=== PATIENT | female | born 1980 | race African-American/Black ===

== ENCOUNTER 2019-03-22 15:42 | Emergency (ER) | payer BC, MEDICAID, OTHER ==
[2019-03-22 16:02] VITALS: BP 145/82
--- NOTE | 2019-03-22 16:40 | ER Document Report ---
ED Medical Screen (RME) - General Chief Complaint: Abdominal Pain Stated Complaint: LEGS SWOLLEN/KNOT BELOW BELLY BUTTON/SPOTTING Time Seen by Provider: 03/22/19 16:29 Primary Care Provider: HELADIO BEATTY MD [Primary Care Provider] - Follow up as needed Mode of Arrival: Ambulatory Information source: Patient Notes: 38-year-old female presented to ED for 2+ pedal edema bilaterally. She states it started yesterday but it went down last night. She states she got up at work 4 hours today and the swelling returned and both legs are very tight and cramping. 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 She states her only medical history is a torn ACL she has had a knee reconstruction wisdom teeth removal and a bilateral tubal ligation. Will order blood urine and chest x-ray for the pedal edema and she will be seen again by another provider. I have greeted and performed a rapid initial assessment of this patient. A comprehensive ED assessment and evaluation of the patient, analysis of test results and completion of medical decision making process will be conducted by an additional ED providers. TRAVEL OUTSIDE OF THE [place] IN LAST 30 DAYS: No - Related Data Allergies/Adverse Reactions: No Known Allergies Allergy (Verified 03/22/19 15:45) Physical Exam - Vital signs Vitals: Temp Pulse Resp BP Pulse Ox 98.4 F 88 16 145/82 H 97 03/22/19 16:01 03/22/19 16:01 03/22/19 16:01 03/22/19 16:01 03/22/19 16:01 Course - Vital Signs Vital signs: Temp Pulse Resp BP Pulse Ox 98.4 F 88 16 145/82 H 97 03/22/19 16:01 03/22/19 16:01 03/22/19 16:01 03/22/19 16:01 03/22/19 16:01 Doctor's Discharge - Discharge Referrals: HELADIO BEATTY MD [Primary Care Provider] - Follow up as needed
[2019-03-22 17:14] LABS: ABSOLUTE EOSINOPHILS # (AUTO) 0.1 10^3/uL (0.0-0.6); ABSOLUTE LYMPHOCYTES (AUTO) 2.1 10^3/uL (0.5-4.7); ABSOLUTE MONOCYTES (AUTO) 0.6 10^3/uL (0.1-1.4); ABSOLUTE NEUT (AUTO) 2.6 10^3/uL (1.7-8.2); BASOPHILS % (AUTO) 0.7 % (0-2); EOSINOPHILS % (AUTO) 2.3 % (0-6); HEMATOCRIT 37.3 % (36.0-47.0); HEMOGLOBIN 12.5 g/dL (12.0-15.5); MEAN CORPUSCULAR HGB CONC 33.6 g/dL (32.0-36.0); MEAN CORPUSCULAR VOLUME 95 fl (80-97); MONOCYTES % (AUTO) 10.6 % (3-13); PLATELET COUNT 190 10^3/uL (150-450); RED BLOOD COUNT 3.92 10^6/uL (3.72-5.28); RED CELL DISTRIBUTION WIDTH 12.7 % (11.5-14.0); SEGMENTED NEUTROPHILS % (AUTO) 47.4 % (42-78); TOTAL CELLS COUNTED % (AUTO) 100 %; WHITE BLOOD COUNT 5.4 10^3/uL (4.0-10.5)
[2019-03-22 17:25] LABS: APPEARANCE,URINE CLOUDY; BILIRUBIN,URINE NEGATIVE (NEGATIVE); COLOR,URINE YELLOW; GLUCOSE, URINE NEGATIVE (NEGATIVE); KETONES,URINE NEGATIVE (NEGATIVE); LEUKOCYTE ESTERASE,URINE LARGE (NEGATIVE); NITRITE,URINE NEGATIVE (NEGATIVE); PROTEIN,URINE NEGATIVE (NEGATIVE); URINE SPECIFIC GRAVITY 1.024
[2019-03-22 17:30] LABS: ALANINE AMINOTRANSFERASE 29 U/L (9-52); ALBUMIN 4.3 g/dL (3.5-5.0); ALKALINE PHOSPHATASE 65 U/L (38-126); ANION GAP 8 (5-19); ASPARTATE AMINO TRANSFERASE 21 U/L (14-36); BILIRUBIN,DIRECT 0.2 mg/dL (0.0-0.4); BILIRUBIN,TOTAL 0.4 mg/dL (0.2-1.3); BLOOD UREA NITROGEN 9 mg/dL (7-20); CALCIUM 9.5 mg/dL (8.4-10.2); CARBON DIOXIDE 28 mmol/L (22-30); CHLORIDE 106 mmol/L (98-107); GLUCOSE 85 mg/dL (75-110); SODIUM 142.4 mmol/L (137-145); TOTAL PROTEIN 7.6 g/dL (6.3-8.2)
--- NOTE | 2019-03-22 17:33 | RADIOLOGY REPORT (SQ) ---
EXAM DESCRIPTION: CHEST 2 VIEWS COMPLETED DATE/TIME: 03/22/2019 5:03 pm REASON FOR STUDY: pedal edema COMPARISON: None. EXAM PARAMETERS: NUMBER OF VIEWS: two views TECHNIQUE: Digital Frontal and Lateral radiographic views of the chest acquired. RADIATION DOSE: NA LIMITATIONS: none FINDINGS: LUNGS AND PLEURA: No opacities, masses or pneumothorax. No pleural effusion. MEDIASTINUM AND HILAR STRUCTURES: No masses or contour abnormalities. HEART AND VASCULAR STRUCTURES: Heart normal size. No evidence for failure. BONES: No acute findings. HARDWARE: None in the chest. OTHER: No other significant finding. IMPRESSION: NO ACUTE RADIOGRAPHIC FINDING IN THE CHEST. TECHNICAL DOCUMENTATION: JOB ID: [id number] [id number] 2010 [employer]- All Rights Reserved Reading location - IP/workstation name: [email or web address]
[2019-03-22] MEDS ORDERED: LIDOCAINE 1%/EPINEPHRINE INJ 20 ML VIAL INJ ONE (19:02)
--- NOTE | 2019-03-22 19:04 | ER Document Report ---
ED General - General Chief Complaint: Abdominal Pain Stated Complaint: LEGS SWOLLEN/KNOT BELOW BELLY BUTTON/SPOTTING Time Seen by Provider: 03/22/19 16:29 Primary Care Provider: HELADIO BEATTY MD [ACTIVE STAFF] - Follow up in 3-5 days MARQUIS PAUL MD [ACTIVE STAFF] - Follow up as needed (surgery if needed ) Mode of Arrival: Ambulatory Notes: Patient is a 38-year-old female that presents to the emergency department for chief complaint of leg swelling and a "knot in her lower abdomen". Patient states she is noticed over the past few days that her legs have been a little more swollen than usual will, and wanted to have this evaluated, she has not had any associated pain with it, or redness. Denies any fevers, chills or chest pain. She denies any shortness of breath. She also mentions as a secondary complaint that she felt a "knot" in her lower abdomen, just under her pannus, she felt it in the shower wanted to have this evaluated as well. It was slightly tender to palpate, but was not causing her too much pain when she is not pushing on it. She currently rates her pain as a 1 out of 10 describes it as an aching sensation. Past Medical History: Denies chronic medical conditions Past Surgical History: Tubal ligation, ACL repair Social History: Admits to smoking cigarettes, denies alcohol or drug use. Family History: Reviewed and noncontributory for presenting illness Allergies: Reviewed, see documented allergy list. REVIEW OF SYSTEMS: Other than noted above, the 12 point review of systems was reviewed with the patient and were negative, all pertinent findings are included in the HPI. PHYSICAL EXAMINATION: Vital signs reviewed, nursing noted reviewed. GENERAL: Well-appearing, well-nourished and in no acute distress. HEAD: Atraumatic, normocephalic. EYES: Eyes appear normal, extraocular movements intact, sclera anicteric, conjunctiva are normal. ENT: nares patent, oropharynx clear without exudates. Moist mucous membranes. NECK: Normal range of motion, supple without lymphadenopathy LUNGS: Breath sounds clear to auscultation bilaterally and equal. No wheezes rales or rhonchi. HEART: Regular rate and rhythm without murmurs ABDOMEN: Soft, nontender, normoactive bowel sounds. No rebound, guarding, or rigidity. No masses appreciated. There is a somewhat fluctuant but more firm nodule in the lower abdomen just left of midline, the measures approximately 3 cm x 2 cm. Mildly tender to palpate. EXTREMITIES: Nontender, good range of motion, trace lower extremity edema bilaterally, no tenderness with palpation of the cast, no varices noted. NEUROLOGICAL: No focal neurological deficits. Moves all extremities spontaneously Motor and sensory grossly intact on exam. PSYCH: Normal mood, normal affect. SKIN: Warm, Dry, normal turgor, no rashes or lesions noted on exposed skin TRAVEL OUTSIDE OF THE [place] IN LAST 30 DAYS: No - Related Data Allergies/Adverse Reactions: No Known Allergies Allergy (Verified 03/22/19 15:45) Past Medical History - General Information source: Patient - Social History Smoking Status: Current Some Day Smoker Family History: Reviewed & Not Pertinent Patient has suicidal ideation: No Patient has homicidal ideation: No Renal/ Medical History: Denies: Hx Peritoneal Dialysis Physical Exam - Vital signs Vitals: Temp Pulse Resp BP Pulse Ox 98.4 F 88 16 145/82 H 97 03/22/19 16:01 03/22/19 16:01 03/22/19 16:01 03/22/19 16:01 03/22/19 16:01 Course - Re-evaluation Re-evalutation: Patient seen and examined vital signs reviewed. Laboratory data and/or imaging were ordered as appropriate for the patient's presenting symptoms and complaint, with consideration of any critical or life threatening conditions that may be associated with their obtained history and exam as noted above. Patient was treated with I&D for what appeared to be an abscess, on the lower abdomen, however after anesthetizing incising this area, it actually appeared to be more like a lipoma based on the tissue presentation, under ultrasound prior to incision, it looks like us if it could be a superficial skin abscess, therefore that is why I&D was performed, since I did not appreciate any abscess or drainage, the wound was then closed as noted with 2 simple interrupted sutures with 3-0 chromic. Patient tolerated all well. Results were reviewed when available and demonstrated UA concerning for possible urinary tract infection, blood work otherwise unremarkable and chest x-ray negat janusz. The patient was re-evaluated and was improved and stable Evaluation was most consistent with nonspecific peripheral edema, suggested wearing compression stockings, low suspicion for DVT do not think duplex imaging is needed at this time, as she does not have any significant redness, or unilat eral edema, and the swelling is minimal, patient also noted to have what appeared to be urinary tract infection, will treat with Bactrim, and have her follow-up with the primary care she is also given referral to surgery regarding the lipoma of her abdomen. Results were discussed with the patient at this point, after careful consideration I feel that that patient can be discharged from the emergency department, the patient was educated treatments and reasons to return to the emergency department based on their presumed diagnosis as noted above, they were advised to followup with a primary care physician in 2-3 days. Patient was agreeable to plan of care. *Note is created using voice recognition software and may contain spelling, syntax or grammatical errors. Laboratory 03/22/19 03/22/19 03/22/19 16:40 16:40 16:40 WBC 5.4 RBC 3.92 Hgb 12.5 Hct 37.3 MCV 95 MCH 32.0 MCHC 33.6 RDW 12.7 Plt Count 190 Seg Neutrophils % 47.4 Lymphocytes % 39.0 Monocytes % 10.6 Eosinophils % 2.3 Basophils % 0.7 Absolute Neutrophils 2.6 Absolute Lymphocytes 2.1 Absolute Monocytes 0.6 Absolute Eosinophils 0.1 Absolute Basophils 0.0 Sodium 142.4 Potassium 4.0 Chloride 106 Carbon Dioxide 28 Anion Gap 8 BUN 9 Creatinine 0.86 Est GFR ( Amer) > 60 Est GFR (Non-Af Amer) > 60 Glucose 85 Calcium 9.5 Total Bilirubin 0.4 Direct Bilirubin 0.2 Neonat Total Bilirubin Not Reportable Neonat Direct Bilirubin Not Reportable Neonat Indirect Bili Not Reportable AST 21 ALT 29 Alkaline Phosphatase 65 NT-Pro-B Natriuret Pep 39 Total Protein 7.6 Albumin 4.3 Urine Color Urine Appearance Urine pH Ur Specific [place] Urine Protein Urine Glucose (UA) Urine Ketones Urine Blood Urine Nitrite Urine Bilirubin Urine Urobilinogen Ur Leukocyte Esterase Urine WBC (Auto) Urine RBC (Auto) Squamous Epi Cells Auto Urine Mucus (Auto) Urine Ascorbic Acid 03/22/19 16:40 WBC RBC Hgb Hct MCV MCH MCHC RDW Plt Count Seg Neutrophils % Lymphocytes % Monocytes % Eosinophils % Basophils % Absolute Neutrophils Absolute Lymphocytes Absolute Monocytes Absolute Eosinophils Absolute Basophils Sodium Potassium Chloride Carbon Dioxide Anion Gap BUN Creatinine Est GFR ( Amer) Est GFR (Non-Af Amer) Glucose Calcium Total Bilirubin Direct Bilirubin Neonat Total Bilirubin Neonat Direct Bilirubin Neonat Indirect Bili AST ALT Alkaline Phosphatase NT-Pro-B Natriuret Pep Total Protein Albumin Urine Color YELLOW Urine Appearance CLOUDY Urine pH 6.0 Ur Specific [place] 1.024 Urine Protein NEGATIVE Urine Glucose (UA) NEGATIVE Urine Ketones NEGATIVE Urine Blood NEGATIVE Urine Nitrite NEGATIVE Urine Bilirubin NEGATIVE Urine Urobilinogen 2.0 H Ur Leukocyte Esterase LARGE H Urine WBC (Auto) 71 Urine RBC (Auto) 39 Squamous Epi Cells Auto 21 Urine Mucus (Auto) FEW Urine Ascorbic Acid NEGATIVE Chest X-Ray 03/22/19 16:38 IMPRESSION: NO ACUTE RADIOGRAPHIC FINDING IN THE CHEST. - Vital Signs Vital signs: Temp Pulse Resp BP Pulse Ox 98.4 F 74 16 145/82 H 98 03/22/19 16:01 03/22/19 20:48 03/22/19 20:48 03/22/19 16:01 03/22/19 20:48 - Laboratory Result Diagrams: 03/22/19 16:40 03/22/19 16:40 Laboratory results interpreted by me: 03/22/19 16:40 Urine Urobilinogen 2.0 H Ur Leukocyte Esterase LARGE H Procedures - Incision and Drainage Abdomen Type: Simple Anesthetic type: 1% Lidocaine w/epi mL's of anesthetic: 3 Blade size: 11 I&D procedure: Chlorprep applied Incision Method: Incision made by scalpel Amount/type of drainage: 0 - Laceration/Wound Repair Abdomen Wound length (cm): 1.6 Wound's Depth, Shape: Superficial Laceration pre-procedure: Sterile PPE donned, Sterile drapes applied Anesthetic type: 1% Lidocaine w/epi Volume Anesthetic (mLs): 2 Wound explored: Clean Wound Repaired With: Sutures Suture Size/Type: 3:0, Other - Chromic Number of Sutures: 2 Layer Closure?: No Complications: No Discharge - Discharge Clinical Impression: UTI (urinary tract infection) Qualifiers: Urinary tract infection type: site unspecified Hematuria presence: without hematuria Qualified Code(s): N39.0 - Urinary tract infection, site not specified Lipoma Qualifiers: Lipoma location: trunk Qualified Code(s): D17.1 - Benign lipomatous neoplasm of skin and subcutaneous tissue of trunk Condition: Stable Disposition: HOME, SELF-CARE Instructions: Urinary Tract Infection ([facility]) Additional Instructions: Please complete the entire course of antibiotics as prescribed, and please follow-up with the surgeon if you would like to have this lipoma addressed. Prescriptions: Sulfamethoxazole/Trimethoprim [Bactrim Ds Tablet] 1 each PO BID #14 tablet Forms: Return to Work Referrals: HELADIO BEATTY MD [ACTIVE STAFF] - Follow up in 3-5 days MARQUIS PAUL MD [ACTIVE STAFF] - Follow up as needed (surgery if needed )
== END 2019-03-22 20:48 | disposition home or self-care (01) ==
LOC: ER 15:42
PROC: 0H97XZZ Drainage of Abdomen Skin, External Approach (ICD-10-PCS; principal; 2019-03-22)
DX: N39.0 Urinary tract infection, site not specified (principal); D17.1 Benign lipomatous neoplasm of skin and subcutaneous tissue of trunk; R10.9 Unspecified abdominal pain; M79.89 Other specified soft tissue disorders; R10.30 Lower abdominal pain, unspecified; F17.210 Nicotine dependence, cigarettes, uncomplicated
CPT/HCPCS: 99283; 36415; 85025; 80053; 81001; 83880; 71046; 10060; J3490

== ENCOUNTER 2019-05-12 04:32 | Emergency (ER) | payer BC ==
[2019-05-12] MEDS ORDERED: ASPIRIN 81 MG TABLET, CHEWABLE PO ONE (04:51)
[2019-05-12 05:41] LABS: ABSOLUTE EOSINOPHILS # (AUTO) 0.1 10^3/uL (0.0-0.6); ABSOLUTE LYMPHOCYTES (AUTO) 2.2 10^3/uL (0.5-4.7); ABSOLUTE MONOCYTES (AUTO) 0.5 10^3/uL (0.1-1.4); ABSOLUTE NEUT (AUTO) 3.1 10^3/uL (1.7-8.2); BASOPHILS % (AUTO) 0.7 % (0-2); EOSINOPHILS % (AUTO) 2.5 % (0-6); HEMATOCRIT 37.2 % (36.0-47.0); HEMOGLOBIN 12.7 g/dL (12.0-15.5); LYMPHOCYTES % (AUTO) 35.9 % (13-45); MEAN CORPUSCULAR HEMOGLOBIN 32.1 pg (27.0-33.4); MEAN CORPUSCULAR VOLUME 94 fl (80-97); MONOCYTES % (AUTO) 8.8 % (3-13); PLATELET COUNT 226 10^3/uL (150-450); RED BLOOD COUNT 3.95 10^6/uL (3.72-5.28); RED CELL DISTRIBUTION WIDTH 12.7 % (11.5-14.0); SEGMENTED NEUTROPHILS % (AUTO) 52.1 % (42-78); TOTAL CELLS COUNTED % (AUTO) 100 %
[2019-05-12 05:57] LABS: ALANINE AMINOTRANSFERASE 23 U/L (9-52); ALBUMIN 4.1 g/dL (3.5-5.0); ALKALINE PHOSPHATASE 68 U/L (38-126); ANION GAP 9 (5-19); ASPARTATE AMINO TRANSFERASE 19 U/L (14-36); BILIRUBIN,DIRECT 0.2 mg/dL (0.0-0.4); BILIRUBIN,TOTAL 0.5 mg/dL (0.2-1.3); BLOOD UREA NITROGEN 8 mg/dL (7-20); CALCIUM 9.1 mg/dL (8.4-10.2); CARBON DIOXIDE 26 mmol/L (22-30); CHLORIDE 106 mmol/L (98-107); CREATINE KINASE 132 U/L (30-135); GLUCOSE 125 mg/dL (75-110); POTASSIUM 3.7 mmol/L (3.6-5.0); SODIUM 140.7 mmol/L (137-145); TOTAL PROTEIN 7.4 g/dL (6.3-8.2)
[2019-05-12 06:11] LABS: CREATINE KINASE MB < 0.22 ng/mL (<4.55); TROPONIN I < 0.012 ng/mL
--- NOTE | 2019-05-12 06:11 | RADIOLOGY REPORT (SQ) ---
EXAM DESCRIPTION: XR CHEST 1 VIEW COMPLETED DATE/TME: 05/12/2019 04:51 CLINICAL HISTORY: 38 years, Female, chest pain COMPARISON: 03/22/2019 chest NUMBER OF VIEWS: 1 TECHNIQUE: Portable chest LIMITATIONS: None. FINDINGS: Heart size normal. Lungs clear. No pneumothorax IMPRESSION: Negative chest copyright 2010 [employer]- All Rights Reserved
--- NOTE | 2019-05-12 07:16 | ER Document Report ---
ED General - General Chief Complaint: Chest Pain Stated Complaint: CHEST PAIN Time Seen by Provider: 05/12/19 06:46 Primary Care Provider: JEFFREY HERRERA MD [Primary Care Provider] - Follow up as needed TRAVEL OUTSIDE OF THE [place] IN LAST 30 DAYS: No - HPI Patient complains to provider of: Chest pain Notes: Patient coming in for evaluation of chest pain. Patient states left-sided chest pain feels like a pulling sensation occurred around 3:00 earlier this morning. Patient is currently states that chest pain has now resolved. Chest pain increased with deep breathing and movement especially of the left shoulder. Patient denies any recent trauma denies any fever chills nausea vomiting diarrhea. Patient states she did vomit once while waiting patient states that before she did have pizza and barbecue chicken things. Patient otherwise is resting comfortably. Patient states approximately few days ago did have a lipoma removed in the surgical office below the umbilicus. Patient in no obvious distress sleeping upon my evaluation easily arousable. Denies any recent travel. - Related Data Allergies/Adverse Reactions: No Known Allergies Allergy (Verified 05/12/19 04:33) Past Medical History - Social History Smoking Status: Never Smoker Chew tobacco use (# tins/day): No Frequency of alcohol use: None Drug Abuse: None Family History: Reviewed & Not Pertinent Patient has suicidal ideation: No Patient has homicidal ideation: No Renal/ Medical History: Denies: Hx Peritoneal Dialysis Review of Systems - Review of Systems Constitutional: No symptoms reported EENT: No symptoms reported Cardiovascular: Chest pain Respiratory: No symptoms reported Gastrointestinal: No symptoms reported Genitourinary: No symptoms reported Female Genitourinary: No symptoms reported Musculoskeletal: No symptoms reported Skin: No symptoms reported Hematologic/Lymphatic: No symptoms reported Neurological/Psychological: No symptoms reported -: Yes All other systems reviewed and negative Physical Exam - Vital signs Vitals: Temp Pulse Resp BP Pulse Ox 98.3 F 80 22 H 156/91 H 98 05/12/19 04:46 05/12/19 04:46 05/12/19 04:46 05/12/19 04:46 05/12/19 04:46 Interpretation: Normal - General General appearance: Appears well, Alert - HEENT Head: Normocephalic, Atraumatic Eyes: Normal Pupils: PERRL - Respiratory Respiratory status: No respiratory distress Chest status: Tender - Chest pain reproduced with palpation of the chest coracoid process and left sternal border. Breath sounds: Normal Chest palpation: Normal - Cardiovascular Rhythm: Regular Heart sounds: Normal auscultation Murmur: No - Abdominal Inspection: Normal Distension: No distension Bowel sounds: Normal Tenderness: Nontender Organomegaly: No organomegaly - Back Back: Normal, Nontender - Extremities General upper extremity: Normal inspection, Nontender, Normal color, Normal ROM, Normal temperature General lower extremity: Normal inspection, Nontender, Normal color, Normal ROM, Normal temperature, Normal weight bearing. No: Heri's sign - Neurological Neuro grossly intact: Yes Cognition: Normal Orientation: AAOx4 Liv Coma Scale Eye Opening: Spontaneous [place] Coma Scale Verbal: Oriented Liv Coma Scale Motor: Obeys Commands Liv Coma Scale Total: 15 Speech: Normal Motor strength normal: LUE, RUE, LLE, RLE Sensory: Normal - Psychological Associated symptoms: Normal affect, Normal mood - Skin Skin Temperature: Warm Skin Moisture: Dry Skin Color: Normal Course - Re-evaluation Re-evalutation: 05/12/19 07:10 The patient has atypical chest pain as the patient's chest pain is not suggestiv e of pulmonary embolus, cardiac ischemia, aortic dissection, or other serious etiology. Given the extremely low risk of these diagnoses further testing and evaluation for these possibilities does not appear to be indicated at this time. The patient has been instructed to return if the symptoms worsen or change in any way. Examination is consistent with chest wall pain. Will discharge patient home with Motrin Tylenol follow-up with PCP. - Vital Signs Vital signs: Temp Pulse Resp BP Pulse Ox 98.1 F 80 22 H 144/94 H 99 05/12/19 06:22 05/12/19 04:46 05/12/19 06:01 05/12/19 06:01 05/12/19 06:01 - Laboratory Result Diagrams: 05/12/19 05:18 05/12/19 05:18 Laboratory results interpreted by me: 05/12/19 05:18 Glucose 125 H Discharge - Discharge Clinical Impression: Chest wall pain Condition: Good Disposition: HOME, SELF-CARE Instructions: Anti-Inflammatory Medication ([facility]), Chest Wall Pain ([facility]) Additional Instructions: Please follow-up with your primary care physician. Please take Tylenol Motrin as prescribed. Return to ER symptoms worsen Prescriptions: Ibuprofen [Motrin 600 mg Tablet] 600 mg PO Q8HP PRN #21 tablet PRN Reason: Forms: Return to Work Referrals: JEFFREY HERRERA MD [Primary Care Provider] - Follow up as needed
[2019-05-12 07:22] VITALS: BP 144/88
--- NOTE | 2019-05-12 23:18 | EKG REPORT ---
SEVERITY:- NORMAL ECG - SINUS RHYTHM : Confirmed by: Josse Patel 12-May-2019 23:17:54
== END 2019-05-12 07:28 | disposition home or self-care (01) ==
LOC: ER 04:32
DX: R07.89 Other chest pain (principal); R11.10 Vomiting, unspecified; Z98.890 Other specified postprocedural states
CPT/HCPCS: 36415; 71045; 80053; 82550; 82553; 84484; 85025; 93005; 93010; 99285

== ENCOUNTER 2019-06-12 11:51 | Observation (INO) | payer BC ==
[~2019-06-12 11:51] MED LIST: LACTATED RINGERS 1000 ML IV PRN; LIDOCAINE 0.5% INJ-PF (5 MG/ML) 50 ML SDV SUBCUT PRN
[2019-06-12] MEDS ORDERED: SUCCINYLCHOLINE CHLORIDE INJ 200 MG/10 ML VIAL ONE (12:42)
[2019-06-12] MEDS ORDERED: DEXAMETHASONE SOD PHOSPHATE INJ 4 MG/1 ML VIAL ONE (14:14)
[2019-06-12] MEDS ORDERED: ONDANSETRON HCL INJ/PF 4 MG/2 ML SDV ONE (14:14)
[2019-06-12] MEDS ORDERED: FENTANYL CITRATE INJ/PF 100 MCG/2 ML AMPUL ONE ×2 (14:14→15:43)
[2019-06-12] MEDS ORDERED: MIDAZOLAM 2 MG/2 ML INJ ONE (14:14)
[2019-06-12] MEDS ORDERED: PROPOFOL INJ 200 MG/20 ML VIAL IV ONE (14:15)
[2019-06-12] MEDS ORDERED: BUPIVACAINE HCL 0.25 % INJ/PF (2.5 MG/1 ML) 30 ML VIAL ONE (14:46)
[2019-06-12] MEDS ORDERED: CEFAZOLIN INJ 1 GM VIAL ONE (15:02)
[2019-06-12] MEDS ORDERED: MEPERIDINE HCL/PF INJ 25 MG/1 ML DISP.SYRIN IV PRN (15:36)
[2019-06-12] MEDS ORDERED: FENTANYL CITRATE INJ/PF 100 MCG/2 ML AMPUL IV PRN ×3 (15:36)
[2019-06-12] MEDS ORDERED: BUPIVACAINE HCL 0.25 % INJ/PF (2.5 MG/1 ML) 30 ML VIAL INJ ONE (15:36)
[2019-06-12] MEDS ORDERED: ONDANSETRON HCL INJ/PF 4 MG/2 ML SDV IV PRN (15:36)
[2019-06-12] MEDS ORDERED: PROMETHAZINE HCL INJ 25 MG/1 ML VIAL IV PRN ×2 (15:36)
[2019-06-12] MEDS ORDERED: DIPHENHYDRAMINE HCL 50 MG/ML VIAL IV PRN (15:36)
[2019-06-12] MEDS ORDERED: MORPHINE SULFATE 10 MG/ML INJ IV PRN (15:36)
[2019-06-12] MEDS: FENTANYL CITRATE INJ/PF 100 MCG/2 ML AMPUL ONE ×2 (17:20→17:25)
[2019-06-12] MEDS ORDERED: ACETAMINOPHEN 1,000 MG/100 ML RTUPB IV ONE (17:28)
[2019-06-12] MEDS ORDERED: KETOROLAC TROMETHAMINE INJ/PF 30 MG/1 ML SDV ONE (17:28)
[2019-06-12] MEDS ORDERED: HYDROCODONE/ACETAMINOPHEN 10-325 MG TABLET PO PRN (17:31)
[2019-06-12] MEDS ORDERED: RINGERS SOLUTION,LACTATED 1,000 ML IV PRN (17:33)
[2019-06-12] MEDS ORDERED: HYDROMORPHONE HCL INJ/PF 2 MG/ML AMPULE ONE (17:45)
[2019-06-12] MEDS: KETOROLAC TROMETHAMINE INJ/PF 30 MG/1 ML SDV IV SCH (21:25)
[2019-06-12] MEDS: ONDANSETRON HCL INJ/PF 4 MG/2 ML SDV IV PRN (21:25)
[2019-06-12] MEDS: FAMOTIDINE 20 MG TABLET PO SCH (21:25)
[2019-06-13] MEDS: MORPHINE SULFATE 10 MG/ML INJ IV PRN ×2 (04:09→10:58)
[2019-06-13] MEDS: ONDANSETRON HCL INJ/PF 4 MG/2 ML SDV IV PRN (04:09)
[2019-06-13] MEDS: KETOROLAC TROMETHAMINE INJ/PF 30 MG/1 ML SDV IV SCH ×3 (06:57→21:23)
[2019-06-13] MEDS: FAMOTIDINE 20 MG TABLET PO SCH ×2 (09:55→21:23)
[2019-06-13] MEDS: ENOXAPARIN SODIUM INJ 40 MG/0.4 ML DISP.SYRIN SUBCUT SCH (10:02)
--- NOTE | 2019-06-13 16:08 | PDOC PROGRESS REPORT ---
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 The patient required resection of her anterior rectus sheath, with placement of a bridging Bard mesh. The patient continues to complain of significant abdominal pain. She is still requiring intravenous narcotics. She reports severe nausea and flushing with hydrocodone. I will change her oral pain medication to oxycodone. Continue Toradol. Out of bed/ambulate. Anticipate discharge tomorrow, if pain control is more acceptable with Percocet.
[2019-06-13] MEDS: OXYCODONE-ACETAMINOPHEN 5-325 MG TABLET PO PRN (22:45)
[2019-06-14] MEDS: MORPHINE SULFATE 10 MG/ML INJ IV PRN (03:25)
[2019-06-14] MEDS: KETOROLAC TROMETHAMINE INJ/PF 30 MG/1 ML SDV IV SCH (06:01)
--- NOTE | 2019-06-14 10:27 | PDOC DISCHARGE SUMMARY ---
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 The patient underwent the operation and did reasonably well. She had large amounts of abdominal pain after the surgery, and required hospital admission with intravenous narcotics. Hospital Course Hospital Course: The patient was taken to the floor stable condition. Pain medication was started. She received Toradol, morphine, and hydrocodone. She reports that the hydrocodone made her feel flushed and jittery. Her hydrocodone was changed to Percocet, and she tolerated this much better. By 06/14/2019, the patient was ambulating, tolerating a diet, her pain was controlled with anti-inflammatories and Percocet. At this point she had reached maximal hospital benefit, and she was medically fit for discharge. Physical Exam Vital Signs: Temp Pulse Resp BP Pulse Ox 98.5 F 67 16 108/54 L 100 06/14/19 07:21 06/14/19 07:21 06/14/19 07:21 06/14/19 07:21 06/14/19 07:21 Intake & Output 06/13/19 06/14/19 06/15/19 06:59 06:59 06:59 Intake Total 2420 1838 Output Total 9084 4205 Balance 155 -527 Weight 110.6 kg 109.5 kg Qualifiers - * PATIENT BEING DISCHARGED WITH ANY OF THE FOLLOWING DIAGNOSIS: No Acute Heart Failure - Is this a Heart Failure Patient?: No Plan Discharge Plan: Discharge home. Diet as tolerated. Activity: No lifting greater than 10 pounds x 6 weeks. Follow-up with [facility] next week (Jeniffer Sims PA-C to see the patient). Percocet 5/325 mg p.o. every 6 hours as needed for pain. Ibuprofen 800 mg p.o. 3 times daily with meals. Sponge baths until drain is out. Okay to remove dressing today. Record [place] output daily. Time Spent: Less than 30 Minutes
[2019-06-14 10:59] VITALS: BP 114/66
[2019-06-14] MEDS: FAMOTIDINE 20 MG TABLET PO SCH (11:16)
[2019-06-14] MEDS: ENOXAPARIN SODIUM INJ 40 MG/0.4 ML DISP.SYRIN SUBCUT SCH (11:18)
[2019-06-14] MEDS: OXYCODONE-ACETAMINOPHEN 5-325 MG TABLET PO PRN (11:34)
--- NOTE | 2019-06-16 00:48 | Operative Report ---
Nonrecallable Operative Report DATE OF SURGERY: 06/12/19 PREOPERATIVE DIAGNOSIS: Sarcoma of the abdominal soft tissues POSTOPERATIVE DIAGNOSIS: Same as above OPERATION: 1. Excision of 2 cm abdominal soft tissue sarcoma with 5 cm circumferential margin. 2. Resection of anterior rectus sheath fascia to facilitate negative margin. 3. Reconstruction of abdominal wall with prosthetic mesh, 15 cm x 15 cm. 4. Advancement flap closure of abdominal wall skin, >30 cm in length. SURGEON: MARQUIS DAMIAN SOLE STITCHER HAND: JENIFFER SIMS ANESTHESIA: GA TISSUE REMOVED OR ALTERED: 2 cm sarcoma with 5 cm circumferential margin, including the anterior rectus sheath of the lower abdominal wall. COMPLICATIONS: None apparent ESTIMATED BLOOD LOSS: 30 cc PROCEDURE: Drains/implants: 15 Icelandic round Ronni drain and subcutaneous tissues. Procedure in detail: After informed consent was obtained, the patient was brought into the operating room and laid in the supine position. The area of the sarcoma was identified. A 5 cm circumferential margin was then marked. An elliptical incision was then created approximately 30 cm in length, from ASIS to ASIS. The dissection was taken through the subcutaneous tissue down to the anterior abdominal wall. The rectus sheath was then excised immediately posterior to the sarcoma, in an area approximately 12 cm in diameter. The specimen was then marked for pathology and sent for examination. Next, reconstruction of the anterior abdominal wall was undertaken. A 15 x 15 cm piece of Bard mesh was placed onto the abdominal wall. It was tucked beneath the edges of the rectus sheath. It was sutured into place using #1 Prolene suture and running circumferential fashion. After this was completed, an advancement flap was created superiorly and inferiorly along the external oblique aponeurosis. The abdominal skin and soft tissue was elevated and advanced in order to facilitate closure. A 15 Icelandic round Rnoni drain was placed into the wound through a separate stab incision. The subcutaneous tissues were closed using interrupted 2-0 Vicryl sutures. The overlying skin was closed using skin davey. A dressing was placed, and the procedure was concluded. All sponge, instrument, and needle counts were correct x2. Condition: Stable. Jeniffer Sims PA-C was scrubbed and present the entirety of the procedure. She assisted with all portions of the procedure including measuring of the margins, excision of the sarcoma, removal of the fascia, placement of the mesh, selling of the mesh, closure of the soft tissues, closure of the skin.
== END 2019-06-14 12:39 | disposition home or self-care (01) ==
LOC: OROUT 11:51 → 5 17:27 → OROUT 18:43 → 5 06-14 12:39
PROVIDERS: ADMIT Surgery; ATTEND Surgery
DX: C49.4 Malignant neoplasm of connective and soft tissue of abdomen (principal); Z01.818 Encounter for other preprocedural examination; R19.09 Other intra-abdominal and pelvic swelling, mass and lump; F17.200 Nicotine dependence, unspecified, uncomplicated
CPT/HCPCS: 22901; 14000; 81025; 88307 ×2; 00800; G0378 ×3; G0379; C1781; J2250; J0690; J1100; J3010; J1885 ×3; J2270 ×2; J1170; J0330; J2405 ×2; J2704; J0131; 800

== ENCOUNTER 2019-07-14 09:20 | Observation (INO) | payer BC ==
[2019-07-14] MEDS ORDERED: LIDOCAINE 1% INJ-PF (10 MG/ML) 30 ML SDV ONE (10:52)
[2019-07-14] MEDS ORDERED: BUPIVACAINE HCL 0.25 % INJ/PF (2.5 MG/1 ML) 30 ML VIAL ONE (10:52)
[2019-07-14 11:07] LABS: HEMATOCRIT 27.4 % (36.0-47.0); HEMOGLOBIN 9.2 g/dL (12.0-15.5); MEAN CORPUSCULAR HEMOGLOBIN 30.7 pg (27.0-33.4); MEAN CORPUSCULAR HGB CONC 33.7 g/dL (32.0-36.0); MEAN CORPUSCULAR VOLUME 91 fl (80-97); PLATELET COUNT 531 10^3/uL (150-450); RED CELL DISTRIBUTION WIDTH 14.3 % (11.5-14.0); WHITE BLOOD COUNT 9.7 10^3/uL (4.0-10.5)
[2019-07-14 11:28] LABS: ANION GAP 11 (5-19); BLOOD UREA NITROGEN 6 mg/dL (7-20); CALCIUM 9.5 mg/dL (8.4-10.2); CARBON DIOXIDE 28 mmol/L (22-30); CHLORIDE 102 mmol/L (98-107); GLUCOSE 92 mg/dL (75-110); POTASSIUM 4.4 mmol/L (3.6-5.0)
[2019-07-14] MEDS ORDERED: FENTANYL CITRATE INJ/PF 250 MCG/5 ML AMPULE ONE (11:53)
[2019-07-14] MEDS ORDERED: KETOROLAC TROMETHAMINE 60 MG/2 ML SDV ONE (11:53)
[2019-07-14] MEDS ORDERED: PROPOFOL INJ 200 MG/20 ML VIAL IV ONE (11:54)
[2019-07-14] MEDS ORDERED: ONDANSETRON HCL INJ/PF 4 MG/2 ML SDV ONE (11:54)
[2019-07-14] MEDS ORDERED: DEXAMETHASONE SOD PHOSPHATE INJ 4 MG/1 ML VIAL ONE (11:54)
[2019-07-14] MEDS ORDERED: MIDAZOLAM 2 MG/2 ML INJ ONE (11:54)
[2019-07-14] MEDS ORDERED: VANCOMYCIN HCL INJ 500 MG VIAL ONE (12:43)
[2019-07-14] MEDS ORDERED: GENTAMICIN SULFATE INJ 80 MG/2 ML VIAL ONE (12:52)
[2019-07-14] MEDS ORDERED: ONDANSETRON HCL INJ/PF 4 MG/2 ML SDV IV PRN (13:24)
[2019-07-14] MEDS ORDERED: VANCOMYCIN HCL 0 MG in DEXTROSE 5%-WATER 250 ML IV NR (13:30)
[2019-07-14] MEDS ORDERED: FENTANYL CITRATE INJ/PF 100 MCG/2 ML AMPUL ONE (13:36)
--- NOTE | 2019-07-14 13:36 | Operative Report ---
Nonrecallable Operative Report DATE OF SURGERY: 07/14/19 PREOPERATIVE DIAGNOSIS: Infected abdominal wall hematoma POSTOPERATIVE DIAGNOSIS: Same as above OPERATION: 1. Incision and drainage of infected abdominal wall hematoma. 2. Pulse lavage irrigation of hematoma cavity. SURGEON: MARQUIS DAMIAN TALENT PARTNER: JENIFFER SIMS ANESTHESIA: GA TISSUE REMOVED OR ALTERED: Infected abdominal wall hematoma, wound culture COMPLICATIONS: None apparent ESTIMATED BLOOD LOSS: Old hematoma PROCEDURE: Drains/implants: Kerlix, soaked in gentamicin. Procedure in detail: After informed consent was obtained, the patient was brought to the operating room and laid in the supine position. The area of the abdomen was prepped and draped in a normal sterile fashion the previous incision was used. A 15 blade scalpel was used to open the old incision. Dissection was carried through the subcutaneous tissue using sharp dissection. The old hematoma was identified. A portion was taken for wound culture. Next, the old hematoma was evacuated. The hematoma cavity was cleaned vigorously. Next, the pulse lavage irrigation device was used to irrigate the cavity. The mesh was then inspected. The mesh was found to be completely incorporated into the musculature of the abdominal wall. It was posterior to, and not involved with, the hematoma cavity. After this was confirmed, it was felt that the mesh should be salvageable. The mesh was left in situ. Gentamicin solution was used to soak a Kerlix. The Kerlix was then placed into the abdominal wound. A dressing was placed, and the procedure was concluded. All sponge, instrument, and needle counts were correct x2. Condition: Stable. Jeniffer Sims PA-C was scrubbed and present the entirety of the procedure. She assisted with all portions of the procedure including opening of the abdominal incision, evacuation of the infected hematoma, pulse lavage irrigation of the cavity, and placement of the dressing.
[2019-07-14] MEDS ORDERED: VECURONIUM BROMIDE INJ 10 MG VIAL IV ONE (14:24)
[2019-07-14] MEDS ORDERED: NEOSTIGMINE METHYLSULFATE 10 MG/10 ML VIAL ONE (14:24)
[2019-07-14] MEDS ORDERED: GLYCOPYRROLATE 1 MG/5 ML VIAL ONE (14:24)
[2019-07-14] MEDS: OXYCODONE-ACETAMINOPHEN 5-325 MG TABLET PO PRN (16:18)
[2019-07-14] MEDS: MORPHINE SULFATE 10 MG/ML INJ IV PRN (21:14)
[2019-07-14] MEDS: VANCOMYCIN HCL 1,250 MG in DEXTROSE 5%-WATER 250 ML IV SCH (21:22)
[2019-07-15] MEDS: OXYCODONE-ACETAMINOPHEN 5-325 MG TABLET PO PRN ×3 (01:04→13:48)
[2019-07-15] MEDS: MORPHINE SULFATE 10 MG/ML INJ IV PRN ×3 (06:32→21:57)
[2019-07-15] MEDS: DOCUSATE SODIUM 100 MG CAPSULE PO SCH (09:17)
[2019-07-15] MEDS: VANCOMYCIN HCL 1,250 MG in DEXTROSE 5%-WATER 250 ML IV SCH ×2 (09:18→21:57)
--- NOTE | 2019-07-15 10:56 | PDOC PROGRESS REPORT ---
Subjective Progress Note for:: 07/15/19 Reason For Visit: T81.40XA INFECTION FOLLOWING A PROCEDURE, UNSPECI Physical Exam Vital Signs: Temp Pulse Resp BP Pulse Ox 98.7 F 76 17 111/60 95 07/15/19 07:53 07/15/19 07:53 07/15/19 07:53 07/15/19 07:53 07/15/19 07:53 Intake & Output 07/14/19 07/15/19 07/16/19 06:59 06:59 06:59 Intake Total 4450 Output Total 3100 Balance 1350 Weight 109.32 kg 106 kg Results Laboratory Results: 07/14/19 10:50 07/14/19 10:50 07/14/19 07/14/19 10:50 10:50 WBC 9.7 RBC 3.00 L Hgb 9.2 L Hct 27.4 L MCV 91 MCH 30.7 MCHC 33.7 RDW 14.3 H Plt Count 531 H Sodium 140.7 Potassium 4.4 Chloride 102 Carbon Dioxide 28 Anion Gap 11 BUN 6 L Creatinine 0.76 Est GFR ( Amer) > 60 Glucose 92 Calcium 9.5 Assessment & Plan - Diagnosis (1) Infected hematoma following procedure Is this a current diagnosis for this admission?: Yes - Plan Summary Plan Summary: This is a 38-year-old female status post evacuation and irrigation of a large hematoma of the lower abdominal wall. The patient has indwelling hernia mesh, after abdominal wall reconstruction. The hernia mesh did not appear to be involved in the hematoma. Her dressing and packing were changed today. The wound appears clean, without purulence. Plan for wound VAC placement to assist with accelerated healing and granulation. Consultation has been made for home wound VAC. Discharge planning. Continue with dressing changes for now. Damp Kerlix packing twice daily. Awaiting wound culture results. Continue vancomycin for now. Patient still requiring intermittent morphine for pain control.
[2019-07-16] MEDS: OXYCODONE-ACETAMINOPHEN 5-325 MG TABLET PO PRN ×4 (04:31→22:21)
[2019-07-16] MEDS: MORPHINE SULFATE 10 MG/ML INJ IV PRN ×2 (05:48→19:34)
--- NOTE | 2019-07-16 07:36 | PDOC PROGRESS REPORT ---
Subjective Reason For Visit: T81.40XA INFECTION FOLLOWING A PROCEDURE, UNSPECI Physical Exam Vital Signs: Temp Pulse Resp BP Pulse Ox 98.6 F 73 16 132/76 H 97 07/15/19 23:00 07/15/19 23:00 07/15/19 23:00 07/15/19 23:00 07/15/19 23:00 Intake & Output 07/15/19 07/16/19 07/17/19 06:59 06:59 06:59 Intake Total 4450 1894 Output Total 3100 2700 Balance 1350 -806 Weight 106 kg 106.8 kg Results Laboratory Results: 07/14/19 10:50 07/14/19 10:50 Assessment & Plan - Diagnosis (1) Infected hematoma following procedure Is this a current diagnosis for this admission?: Yes - Plan Summary Plan Summary: This is a 38-year-old female status post evacuation and irrigation of a large hematoma of the lower abdominal wall. The patient has indwelling hernia mesh, after abdominal wall reconstruction. The hernia mesh did not appear to be involved in the hematoma. The wound appears clean, without purulence. Plan for wound VAC placement to assist with accelerated healing and granulation. Consultation has been made for home wound VAC. Discharge planning. Continue with dressing changes for now. Damp Kerlix packing twice daily. Cultures show Staph. Change abx to Bactrim. Patient still requiring intermittent morphine for pain control.
[2019-07-16 10:37] LABS: VANCOMYCIN,TROUGH 7.9 ug/mL (5.0-20.0)
[2019-07-16] MEDS: DOCUSATE SODIUM 100 MG CAPSULE PO SCH (11:16)
[2019-07-16] MEDS: SULFAMETHOXAZOLE/TRIMETHOPRIM 800-160 MG TABLET PO SCH ×2 (11:16→22:17)
[2019-07-16] MEDS ORDERED: ONDANSETRON HCL INJ/PF 4 MG/2 ML SDV IV PRN (14:00)
[2019-07-17] MEDS: OXYCODONE-ACETAMINOPHEN 5-325 MG TABLET PO PRN ×3 (02:26→20:31)
[2019-07-17] MEDS: MORPHINE SULFATE 10 MG/ML INJ IV PRN ×3 (05:22→23:33)
[2019-07-17] MEDS: DOCUSATE SODIUM 100 MG CAPSULE PO SCH ×2 (10:51→18:47)
[2019-07-17] MEDS: SULFAMETHOXAZOLE/TRIMETHOPRIM 800-160 MG TABLET PO SCH ×2 (10:52→21:24)
--- NOTE | 2019-07-17 16:22 | PDOC PROGRESS REPORT ---
Subjective Progress Note for:: 07/17/19 Reason For Visit: T81.40XA INFECTION FOLLOWING A PROCEDURE, UNSPECI Physical Exam Vital Signs: Temp Pulse Resp BP Pulse Ox 98.3 F 74 17 105/72 97 07/17/19 11:11 07/17/19 11:11 07/17/19 11:11 07/17/19 11:11 07/17/19 11:11 Intake & Output 07/16/19 07/17/19 07/18/19 06:59 06:59 06:59 Intake Total 1894 1262 Output Total 2700 4100 Balance -806 -2832 Weight 106.8 kg 107 kg Results Laboratory Results: 07/14/19 10:50 07/16/19 09:33 07/14/19 12:38 Abdomen - Abscess Gram Stain - Final 07/14/19 12:38 Abdomen - Abscess Wound Culture - Final Staphylococcus Lugdunensis No Anaerobic Organisms Assessment & Plan - Diagnosis (1) Infected hematoma following procedure Is this a current diagnosis for this admission?: Yes - Plan Summary Plan Summary: This is a 38-year-old female status post evacuation and irrigation of a large hematoma of the lower abdominal wall. The patient has indwelling hernia mesh, after abdominal wall reconstruction. The hernia mesh did not appear to be involved in the hematoma. The wound appears clean, without purulence. Wound VAC placement today to assist with accelerated healing and granulation. Consultation has been made for home health. Discharge planning. Place wound VAC today Cultures show Staph. Cont. Bactrim. Patient still requiring intermittent morphine for pain control. D/c tomorrow.
--- NOTE | 2019-07-17 16:25 | Operative Report ---
Nonrecallable Operative Report DATE OF SURGERY: 07/17/19 PREOPERATIVE DIAGNOSIS: Large lower midline abdominal wound. POSTOPERATIVE DIAGNOSIS: Same as above. OPERATION: Placement of negative pressure wound management system (18 cm x 5 cm x 3 cm). SURGEON: MARQUIS PAUL ANESTHESIA: Other - None TISSUE REMOVED OR ALTERED: None COMPLICATIONS: None ESTIMATED BLOOD LOSS: None PROCEDURE: Drains/implants: Black granular foam wound VAC sponge, cut to size. Procedure in detail: After informed consent was obtained for the patient, she was laid in the supine position in the hospital room. The damp Kerlix packing was removed from the wound. The wound appeared healthy, without obvious purulence. The black granular foam wound VAC sponge was cut to size. The wound measured 18 x 3 x 5 cm. The sponge was placed into the wound. It was covered with the clear occlusive dressing. Suction was applied, and the seal was good. Once this was completed, the procedure was concluded. All sponge, instrument, and needle counts were correct. Condition: Stable.
[2019-07-17] MEDS ORDERED: DIPHENHYDRAMINE HCL 25 MG CAPSULE ONE (23:31)
[2019-07-17] MEDS ORDERED: DIPHENHYDRAMINE HCL 25 MG CAPSULE PO PRN (23:40)
[2019-07-18] MEDS: OXYCODONE-ACETAMINOPHEN 5-325 MG TABLET PO PRN (06:03)
--- NOTE | 2019-07-18 08:56 | PDOC DISCHARGE SUMMARY ---
General - Admit/Disc Date/PCP Admission Date/Primary Care Provider: 07/14/19 09:20 KIRIT RACHEL MD Discharge Date: 07/18/19 - Discharge Diagnosis (1) Infected hematoma following procedure Is this a current diagnosis for this admission?: Yes - Additional Information Resuscitation Status: Full Code Discharge Diet: As Tolerated Home Medications: Ibuprofen [Motrin 800 mg Tablet] 800 mg PO PRN PRN 06/12/19 History of Present Illness History of Present Illness: RAHEEM CHAVEZ is a 38 year old female Hospital Course Hospital Course: Patient was admitted to the general surgery service, taken to the operating room on 07/14/[address] Montgomery and had a abdominal wall hematoma evacuated debrided. She underwent dressing changes, then was taken back to the operating room on 07/17/2019 where she had a wound VAC placed. Patient tolerated procedure well. She grew Staphylococcus Ludunenis sensitive to Bactrim. She was addition from IV to oral antibiotics and by 07/18/2019 was tolerating a diet and ready for discharge home. Physical Exam Vital Signs: Temp Pulse Resp BP Pulse Ox 98.8 F 76 18 109/70 97 07/17/19 23:23 07/17/19 23:23 07/17/19 23:23 07/17/19 23:23 07/17/19 23:23 Intake & Output 07/17/19 07/18/19 07/19/19 06:59 06:59 06:59 Intake Total 1262 2900 30 Output Total 4100 2250 850 Balance -2838 650 -820 Weight 107 kg 107.5 kg General appearance: PRESENT: no acute distress GI/Abdominal exam: PRESENT: other - VAC in place with good suction Results Laboratory Results: 07/14/19 10:50 07/16/19 09:33 07/14/19 12:38 Abdomen - Abscess Gram Stain - Final 07/14/19 12:38 Abdomen - Abscess Wound Culture - Final Staphylococcus Lugdunensis No Anaerobic Organisms Qualifiers - * PATIENT BEING DISCHARGED WITH ANY OF THE FOLLOWING DIAGNOSIS: No Acute Heart Failure - Is this a Heart Failure Patient?: No Plan Discharge Plan: Patient will be discharged home to care of her family, take [place] as needed pain, and p.o. Bactrim as prescribed; she has been educated on wound VAC therapy and will take her equipment from the hospital with her upon discharge. She will follow-up with [facility] in 1 week, or contact our office or the on-call surgeon in the event her clinical condition changes. Time Spent: Less than 30 Minutes
[2019-07-18 09:15] VITALS: BP 115/50
[2019-07-18] MEDS: MORPHINE SULFATE 10 MG/ML INJ IV PRN (09:17)
[2019-07-18] MEDS: SULFAMETHOXAZOLE/TRIMETHOPRIM 800-160 MG TABLET PO SCH (09:23)
[2019-07-18] MEDS: DOCUSATE SODIUM 100 MG CAPSULE PO SCH (09:24)
== END 2019-07-18 13:00 | disposition home health service (06) ==
LOC: INTOOBSV 09:20 → INOR 09:20 → EDSTATUS 11:30 → 4N 14:40
PROVIDERS: ADMIT Surgery; ATTEND Surgery
PROC: 0W9F0ZX Drainage of Abdominal Wall, Open Approach, Diagnostic (ICD-10-PCS; principal; 2019-07-14 12:30)
PROC: 2W13X6Z Compression of Abdominal Wall using Pressure Dressing (ICD-10-PCS; 2019-07-17)
DX: T81.49XA Infection following a procedure, other surgical site, initial encounter (principal); B95.7 Other staphylococcus as the cause of diseases classified elsewhere; L76.32 Postprocedural hematoma of skin and subcutaneous tissue following other procedure; Y83.4 Other reconstructive surgery as the cause of abnormal reaction of the patient, or of later complication, without mention of misadventure at the time of the procedure; C49.9 Malignant neoplasm of connective and soft tissue, unspecified; M79.669 Pain in unspecified lower leg; Z98.51 Tubal ligation status; F17.210 Nicotine dependence, cigarettes, uncomplicated
CPT/HCPCS: 36415 ×2; 87070; 87205; 82565; 85027; 87075; 87077; 80048; 87186; 80202; 00800; 97606; 10180; G0378 ×5; J2250; J1100; J1885; J3010 ×2; J1580; J3490 ×2; J2270 ×5; J2710; J2405; J3370 ×3; J7060 ×2; J2704; 800

== ENCOUNTER → 2019-09-08 | Outpatient (CLI) | payer BC ==
[2019-09-08 14:50] LABS: ABSOLUTE EOSINOPHILS # (AUTO) 0.1 10^3/uL (0.0-0.6); ABSOLUTE LYMPHOCYTES (AUTO) 1.9 10^3/uL (0.5-4.7); ABSOLUTE MONOCYTES (AUTO) 0.4 10^3/uL (0.1-1.4); BASOPHILS % (AUTO) 1.1 % (0-2); EOSINOPHILS % (AUTO) 1.7 % (0-6); HEMATOCRIT 33.2 % (36.0-47.0); HEMOGLOBIN 10.8 g/dL (12.0-15.5); LYMPHOCYTES % (AUTO) 42.9 % (13-45); MEAN CORPUSCULAR HEMOGLOBIN 28.5 pg (27.0-33.4); MEAN CORPUSCULAR HGB CONC 32.6 g/dL (32.0-36.0); MEAN CORPUSCULAR VOLUME 88 fl (80-97); MONOCYTES % (AUTO) 9.3 % (3-13); PLATELET COUNT 268 10^3/uL (150-450); RED BLOOD COUNT 3.79 10^6/uL (3.72-5.28); RED CELL DISTRIBUTION WIDTH 14.8 % (11.5-14.0); TOTAL CELLS COUNTED % (AUTO) 100 %; WHITE BLOOD COUNT 4.4 10^3/uL (4.0-10.5)
--- NOTE | 2019-09-08 15:10 | RADIOLOGY REPORT (SQ) ---
EXAM DESCRIPTION: CHEST PA/LATERAL COMPLETED DATE/TIME: 09/08/2019 2:34 pm REASON FOR STUDY: COUGH; CHILLS; MALAISE COMPARISON: 05/12/2019 EXAM PARAMETERS: NUMBER OF VIEWS: two views TECHNIQUE: Digital Frontal and Lateral radiographic views of the chest acquired. RADIATION DOSE: NA LIMITATIONS: none FINDINGS: LUNGS AND PLEURA: No opacities, masses or pneumothorax. No pleural effusion. MEDIASTINUM AND HILAR STRUCTURES: No masses or contour abnormalities. HEART AND VASCULAR STRUCTURES: Heart normal size. No evidence for failure. BONES: No acute findings. HARDWARE: None in the chest. OTHER: No other significant finding. IMPRESSION: 1. No significant interval changes since the prior examination dated 05/12/2019. No acu te findings. TECHNICAL DOCUMENTATION: JOB ID: [id number] [employer]- All Rights Reserved Reading location - IP/workstation name: [email or web address]
[2019-09-08 15:56] LABS: APPEARANCE,URINE SLIGHTLY-CLOUDY; BILIRUBIN,URINE NEGATIVE (NEGATIVE); COLOR,URINE YELLOW; GLUCOSE, URINE NEGATIVE (NEGATIVE); KETONES,URINE NEGATIVE (NEGATIVE); LEUKOCYTE ESTERASE,URINE MODERATE (NEGATIVE); NITRITE,URINE NEGATIVE (NEGATIVE); PROTEIN,URINE NEGATIVE (NEGATIVE); URINE SPECIFIC GRAVITY 1.028; UROBILINOGEN,URINE NEGATIVE mg/dL (<2.0)
== END ==
LOC: OD 14:02
PROVIDERS: ATTEND Surgery
DX: R05 Cough (principal); R53.81 Other malaise; R68.83 Chills (without fever); R10.2 Pelvic and perineal pain
CPT/HCPCS: 36415; 71046; 81001; 85025

== ENCOUNTER 2019-09-28 07:35 | Emergency (ER) | payer BC, MEDICAID ==
[2019-09-28 08:28] LABS: APPEARANCE,URINE SLIGHTLY-CLOUDY; BILIRUBIN,URINE NEGATIVE (NEGATIVE); COLOR,URINE YELLOW; GLUCOSE, URINE NEGATIVE (NEGATIVE); KETONES,URINE NEGATIVE (NEGATIVE); LEUKOCYTE ESTERASE,URINE LARGE (NEGATIVE); NITRITE,URINE NEGATIVE (NEGATIVE); PROTEIN,URINE 30 mg/dL (NEGATIVE); URINE SPECIFIC GRAVITY 1.011
[2019-09-28] MEDS ORDERED: KETOROLAC TROMETHAMINE INJ/PF 30 MG/1 ML SDV IV ONE (09:35)
[2019-09-28] MEDS ORDERED: CEFTRIAXONE 1 GM/D5W RTU 1 GM/50 ML RTUPB IV ONE (09:35)
[2019-09-28] MEDS ORDERED: NORMAL SALINE 1000 ML 1,000 ML IV ONE (09:35)
[2019-09-28] MEDS ORDERED: ONDANSETRON HCL INJ/PF 4 MG/2 ML SDV IV ONE (09:36)
--- NOTE | 2019-09-28 10:23 | ER Document Report ---
Entered by EVELYN ELIZABETH SCRIBE 09/28/19 0935 Acting as scribe for:HERMAN MITTAL MD ED GI/ - General Chief Complaint: right flank pain Stated Complaint: LOWER BACK PAIN/FLANK PAIN/VOMITING Time Seen by Provider: 09/28/19 09:02 Primary Care Provider: ISAAC LIN FNP-C [Primary Care Provider] - Follow up as needed Mode of Arrival: Ambulatory Information source: Patient Notes: Patient is a 38-year-old female who presents to the emergency department today with complaints of right-sided flank pain which began yesterday. Patient was started on Macrodantin on September 09 for a UTI. Patient states she "thinks it is into her kidney now". Patient states her pain is exacerbated with coughing, walking, and bouncing up and down. Patient states she has had chills this morning but did not take her temperature. Patient has nausea with one episode of vomiting this morning. TRAVEL OUTSIDE OF THE [place] IN LAST 30 DAYS: No - Related Data Allergies/Adverse Reactions: No Known Allergies Allergy (Verified 05/12/19 04:33) Past Medical History - General Information source: Patient - Social History Smoking Status: Current Some Day Smoker Cigarette use (# per day): Yes Chew tobacco use (# tins/day): No Frequency of alcohol use: Social Drug Abuse: None Lives with: Family Family History: Reviewed & Not Pertinent Patient has suicidal ideation: No Patient has homicidal ideation: No Musculoskeletal Medical History: Reports Hx Arthritis - rt knee - Immunizations Hx Diphtheria, Pertussis, Tetanus Vaccination: Yes Review of Systems - Review of Systems Constitutional: See HPI, Chills EENT: No symptoms reported Cardiovascular: No symptoms reported Respiratory: No symptoms reported Gastrointestinal: See HPI, Nausea, Vomiting Genitourinary: See HPI, Flank pain - right Female Genitourinary: No symptoms reported Musculoskeletal: No symptoms reported Skin: No symptoms reported Hematologic/Lymphatic: No symptoms reported Neurological/Psychological: No symptoms reported -: Yes All other systems reviewed and negative Physical Exam - Vital signs Vitals: Temp Pulse Resp BP Pulse Ox 99.5 F 92 18 146/83 H 98 09/28/19 07:39 09/28/19 07:39 09/28/19 07:39 09/28/19 07:39 09/28/19 07:39 - Notes Notes: Physical Exam: General: Alert, appears well. HEENT: Normocephalic. Atraumatic. PERRL. Extraocular movements intact. Or opharynx clear. Neck: Supple. Non-tender. Respiratory: No respiratory distress. Clear and equal breath sounds bilaterally. Cardiovascular: Regular rate and rhythm. Abdominal: Mild right lower quadrant tenderness with palpation. No distension. Normal Bowel Sounds. Back: Right CVA tenderness to percussion. Extremities: Moves all four extremities. Upper extremities: Normal inspection. Normal ROM. Lower extremities: Normal inspection. No edema. Normal ROM. Neurological: Normal cognition. AAOx4. Normal speech. Psychological: Normal affect. Normal Mood. Skin: Warm. Dry. Normal color. Course - Vital Signs Vital signs: Temp Pulse Resp BP Pulse Ox 99.5 F 92 18 146/83 H 98 09/28/19 07:39 09/28/19 07:39 09/28/19 07:39 09/28/19 07:39 09/28/19 07:39 - Laboratory Result Diagrams: 09/28/19 10:26 09/28/19 10:26 Laboratory results interpreted by me: 09/28/19 09/28/19 09/28/19 08:00 10:26 10:26 Hgb 11.7 L RDW 15.2 H Potassium 3.3 L BUN 6 L Total Protein 8.3 H Urine Protein 30 H Urine Blood MODERATE H Urine Urobilinogen 2.0 H Ur Leukocyte Esterase LARGE H - Diagnostic Test Radiology reviewed: Image reviewed, Reports reviewed - Noncontrast CT scan abdomen pelvis shows mild right hydronephrosis without definite obstructing calculus seen. There is small calcification in the pelvis which could represent a phlebolith or possibly ureteral calculus. Discharge - Discharge Clinical Impression: Pyelonephritis Hydronephrosis Qualifiers: Hydronephrosis type: unspecified Qualified Code(s): N13.30 - Unspecified hydronephrosis Condition: Stable Disposition: HOME, SELF-CARE Additional Instructions: Pyelonephritis Your evaluation shows evidence of pyelonephritis. This is an infection in the kidney. Typical symptoms are fever, pain in the flank, pain on urination, and frequent urination. Many cases of pyelonephritis can be treated at home. Hospital care may be necessary for patients who are very ill, or elderly or . Pyelonephritis is treated with antibiotics. Be sure to take all the medication as prescribed. Drink plenty of liquids (about three quarts per day). You may take acetaminophen for fever. You should feel significantly improved within two days. You should have a recheck of your urine in about one week to insure that the infection is gone. Return for a re-examination if your symptoms worsen in any way -- such as high fever, shaking chills, severe weakness or dizziness, severe pain, or inability to pass your urine. Your exam shows that you have a urinary tract infection. It has most likely affected your right kidney. CT scan did show some distention in the right kidney called hydronephrosis. This could possibly be due to a small kidney stone that cannot be seen at this time. It is very important that you take the antibiotics as prescribed and drink lots of fluids throughout the day in the evening every day. Call [facility] urology office to schedule an appointment for follow-up this week for recheck, or follow-up with your primary care provider this week. RETURN TO THE EMERGENCY ROOM IF ANY NEW OR WORSENING SYMPTOMS. Prescriptions: Ciprofloxacin HCl [Cipro 500 mg Tablet] 500 mg PO BID #14 tablet Hydrocodone/Acetaminophen [[place] 5-325 mg Tablet] 1 tab PO Q4 PRN #12 tablet PRN Reason: Forms: Return to Work Referrals: [facility] [Provider Group] - Follow up in 3-5 days ISAAC LIN FNP-C [Primary Care Provider] - Follow up in 3-5 days Scribe Attestation: 09/28/19 09:46 I personally performed the services described in the documentation, reviewed and edited the documentation which was dictated to the scribe in my presence, and it accurately records my words and actions. I personally performed the services described in the documentation, reviewed and edited the documentation which was dictated to the scribe in my presence, and it accurately records my words and actions.
[2019-09-28 10:53] LABS: ABSOLUTE LYMPHOCYTES (AUTO) 1.2 10^3/uL (0.5-4.7); ABSOLUTE MONOCYTES (AUTO) 0.8 10^3/uL (0.1-1.4); ABSOLUTE NEUT (AUTO) 6.2 10^3/uL (1.7-8.2); BASOPHILS % (AUTO) 0.4 % (0-2); EOSINOPHILS % (AUTO) 0.1 % (0-6); HEMATOCRIT 36.1 % (36.0-47.0); HEMOGLOBIN 11.7 g/dL (12.0-15.5); LYMPHOCYTES % (AUTO) 14.2 % (13-45); MEAN CORPUSCULAR HEMOGLOBIN 28.5 pg (27.0-33.4); MEAN CORPUSCULAR HGB CONC 32.5 g/dL (32.0-36.0); MEAN CORPUSCULAR VOLUME 88 fl (80-97); MONOCYTES % (AUTO) 9.3 % (3-13); PLATELET COUNT 222 10^3/uL (150-450); RED BLOOD COUNT 4.11 10^6/uL (3.72-5.28); RED CELL DISTRIBUTION WIDTH 15.2 % (11.5-14.0); TOTAL CELLS COUNTED % (AUTO) 100 %; WHITE BLOOD COUNT 8.2 10^3/uL (4.0-10.5)
[2019-09-28 11:16] LABS: ALBUMIN 4.5 g/dL (3.5-5.0); ALKALINE PHOSPHATASE 75 U/L (38-126); ANION GAP 11 (5-19); ASPARTATE AMINO TRANSFERASE 27 U/L (14-36); BILIRUBIN,DIRECT 0.2 mg/dL (0.0-0.4); BLOOD UREA NITROGEN 6 mg/dL (7-20); CALCIUM 9.1 mg/dL (8.4-10.2); CARBON DIOXIDE 28 mmol/L (22-30); CHLORIDE 100 mmol/L (98-107); GLUCOSE 98 mg/dL (75-110); POTASSIUM 3.3 mmol/L (3.6-5.0); TOTAL PROTEIN 8.3 g/dL (6.3-8.2)
[2019-09-28] MEDS ORDERED: DEXTROSE 5%-LACTATED RINGERS 1,000 ML IV ONE (11:39)
--- NOTE | 2019-09-28 12:32 | RADIOLOGY REPORT (SQ) ---
EXAM DESCRIPTION: CT ABD/PELVIS NO ORAL OR IV COMPLETED DATE/TIME: 09/28/2019 11:59 am REASON FOR STUDY: Right flank pain with pyuria and hematuria COMPARISON: None. TECHNIQUE: CT scan of the abdomen and pelvis performed without intravenous or oral contrast. Images reviewed with lung, soft tissue, and bone windows. Reconstructed coronal and sagittal MPR images revi ewed. All images stored on PACS. All CT scanners at this facility use dose modulation, iterative reconstruction, and/or weight based d osing when appropriate to reduce radiation dose to as low as reasonably achievable (ALARA). [facility]: Dose Right [facility]: CareDose [facility]: Dose Right [facility]: Teradose 4D [facility]: Smart Yaphie RADIATION DOSE: CT Rad equipment meets quality standard of care and radiation dose reduction techniq ues were employed. CTDIvol: 14.5 mGy. DLP: 809 mGy-cm.mGy. LIMITATIONS: None. FINDINGS: LOWER CHEST: No significant findings. No nodules or infiltrates. NON-CONTRASTED LIVER, SPLEEN, ADRENALS: Evaluation limited by lack of IV contrast. No identified sign ificant masses. PANCREAS: No masses. No peripancreatic inflammatory changes. GALLBLADDER: No identified stones by CT criteria. No inflammatory changes to suggest cholecystitis. RIGHT KIDNEY AND URETER: No suspicious masses. Assessment limited by lack of IV contrast. No signif icant calcifications. There appears to be mild right hydronephrosis. An obstructing calculus is no t identified. There is a small calcification in the right side of the pelvis on image 80 which could possibly be in the distal ureter, but could represent a phlebolith. LEFT KIDNEY AND URETER: No suspicious masses. Assessment limited by lack of IV contrast. No signifi cant calcifications. No hydronephrosis or hydroureter. AORTA AND RETROPERITONEUM: No aneurysm. No retroperitoneal masses or adenopathy. BOWEL AND PERITONEAL CAVITY: No obvious masses or inflammatory changes. No free fluid. APPENDIX: Not identified. No pericecal inflammation is seen. PELVIS, BLADDER, AND ABDOMINAL WALL:No abnormal masses. No free fluid. Bladder normal. BONES: No significant findings. OTHER: No other significant finding. IMPRESSION: There appears to be mild right hydronephrosis but a definite obstructing calculus is not identified. There is a small calcification in the pelvis which could represent a phlebolith or poss ibly ureteral calculus. COMMENT: Quality ID # 436: Final reports with documentation of one or more dose reduction techniques (e.g., Automated exposure control, adjustment of the mA and/or kV according to patient size, use of iterative reconstruction technique) TECHNICAL DOCUMENTATION: JOB ID: [id number] [employer]- All Rights Reserved Reading location - IP/workstation name: [email or web address]
[2019-09-28] MEDS ORDERED: CIPROFLOXACIN HCL 500 MG TABLET PO ONE (12:50)
[2019-09-28 13:55] VITALS: BP 133/81
== END 2019-09-28 13:55 | disposition home or self-care (01) ==
LOC: ER 07:35
DX: N12 Tubulo-interstitial nephritis, not specified as acute or chronic (principal); N13.30 Unspecified hydronephrosis; R10.9 Unspecified abdominal pain; M54.5 Low back pain; R11.2 Nausea with vomiting, unspecified; F17.200 Nicotine dependence, unspecified, uncomplicated
CPT/HCPCS: 99284; 96361; 96375; 96365; 36415; 87040; 87086; 85025; 81025; 80053; 81001; 74176; J1885; J2405; J7121; J7030; J0696

== ENCOUNTER → 2020-05-09 | Outpatient (CLI) | payer BC, MEDICAID ==
--- NOTE | 2020-05-09 12:59 | RADIOLOGY REPORT (SQ) ---
EXAM DESCRIPTION: FOOT LEFT 2 VIEWS IMAGES COMPLETED DATE/TIME: 05/09/2020 10:37 am REASON FOR STUDY: MASS OF LEFT FOOT R22.42 LOCALIZED SWELLING, MASS AND LUMP, LEFT LOWER LIMB COMPARISON: None. NUMBER OF VIEWS: Three views. TECHNIQUE: AP, lateral and oblique radiographic images acquired of the left foot. LIMITATIONS: None. FINDINGS: MINERALIZATION: Normal. BONES: No acute fracture or dislocation. No worrisome bone lesions. JOINTS: No effusions. SOFT TISSUES: Focal dorsal soft tissue swelling. OTHER: No other significant finding. IMPRESSION: There is focal dorsal soft tissue swelling overlying the tarsal bones. No osseous abnor mality. TECHNICAL DOCUMENTATION: JOB ID: [id number] 2010 [employer]- All Rights Reserved Reading location - IP/workstation name: [email or web address]
== END ==
LOC: OD 10:24
PROVIDERS: ATTEND Nurse Practitioner Family
DX: R22.42 Localized swelling, mass and lump, left lower limb (principal)

== ENCOUNTER → 2020-05-18 | Outpatient (CLI) | payer BC, MEDICAID ==
--- NOTE | 2020-05-18 17:15 | WOMENS IMAGING REPORT ---
EXAM DESCRIPTION: 3D SCREENING MAMMO BILAT IMAGES COMPLETED DATE/TIME: 05/18/2020 3:29 pm REASON FOR STUDY: ENCNTR SCREEN MAMMOGRAM FOR MALIGNANT NEOPLASM OF BREAST Z12.31 ENCNTR SCREEN ETHEL MOGRAM FOR MALIGNANT NEOPLASM OF [place] COMPARISON: None available, prior mammograms out of state 2008 EXAM PARAMETERS: Standard craniocaudal and mediolateral oblique views of each breast recorded using digital acquisition and breast tomosynthesis. Read with the assistance of CAD. .[facility] - [employer] Director Of Trauma Version 9.2 LIMITATIONS: None. FINDINGS: RIGHT BREAST MASSES: No suspicious masses. CALCIFICATIONS: No new or suspicious calcifications. ARCHITECTURAL DISTORTION: None. ASYMMETRY: Asymmetric breast tissue is present in the right breast 12 o'clock position about 8 cm fro m the nipple. Further evaluation with cone compression views and ultrasound recommended. OTHER: No other significant findings. LEFT BREAST MASSES: No suspicious masses. CALCIFICATIONS: No new or suspicious calcifications. ARCHITECTURAL DISTORTION: None. ASYMMETRY: None noted. OTHER: No other significant findings. IMPRESSION: Probable benign asymmetry, right breast 12 o'clock position. Cone compression views and ultrasound recommended for follow-up 0 Incomplete: Needs Additional Imaging Evaluation and/or prior Mammograms for Comparison. BREAST DENSITY: b. There are scattered areas of fibroglandular density. BIRAD: ASSESSMENT: 0 Incomplete: Needs Additional Imaging Evaluation and/or prior Mammograms for C omparison. RECOMMENDATION: RECOMMENDED FOLLOW-UP: Right breast diagnostic mammograms and ultrasound The patient will be contacted for additional imaging. COMMENT: The patient has been notified of the results by letter per [place] requirements. Additional no tification policies are in place for contacting patient with suspicious or incomplete findings. Quality ID #225: The [employer] recommends an annual screening mammogram for women aged 40 years or over. This facility utilizes a reminder system to ensure that all patients receive reminder letters, and/or direct phone calls for appointments. This includes reminders for routine scr eening mammograms, diagnostic mammograms, or other Breast Imaging Interventions when appropriate. Th is patient will be placed in the appropriate reminder system. TECHNICAL DOCUMENTATION: FINDING NUMBER: (1) ASSESSMENT: (1) JOB ID: [id number] 2010 [employer]- All Rights Reserved Reading location - IP/workstation name: [email or web address]
== END ==
LOC: WI 15:02
PROVIDERS: ATTEND Nurse Practitioner Family
DX: Z12.31 Encounter for screening mammogram for malignant neoplasm of breast (principal); N64.89 Other specified disorders of breast
CPT/HCPCS: 77063; 77067